=== PATIENT | female | born 1940 | race Two or more races ===

== ENCOUNTER 2017-02-28 23:29 | Inpatient (IN) | payer MEDICARE, MEDICAID ==
[~2017-02-28] VITALS: Ht 165.1 cm; Wt 83.7 kg
[2017-03-01 02:00] VITALS: BP 117/58
--- NOTE | 2017-03-01 02:00 | NUR ---
ADMISSION NOTES RECEIVED REPORT FROM [facility]. PT WAS BROUGHT TO THE UNIT ACCOMPANIED BY EMT. PATIENT ADMITTED FOR PNA, NEW ONSET SVT. PATIENT IS ALERT AND ORIENTED X3 SOUTH KOREAN SPEAKING BUT UNDERSTAND BASIC WELSH. PT ON 2 LITERS VIA NC WITH LEFT AC #18 ON [place]PL[place]. RESPIRATION EVEN AND UNLABORED. DENIES SOB. DENIES CHEST PAIN. ALL PAPER WORKS FROM [facility] ATTACHED TO CHART. ORIENTED PATIENT TO UNIT AND HOUR ROUNDING. PLACED ON TELE MONITOR WITH CURRENT READING OF SINUS TACH 115. SAFETY PRECAUTIONS FOR FALL INITIATED. CALL LIGHT WITHIN REACH. WILL CONTINUE TO MONITOR.
--- NOTE | 2017-03-01 02:10 | NUR ---
PERFORMED SKIN ASSESSMENT AND NO SKIN ISSUES NOTED. INVENTORY OF BELONGINGS COMPLETED BY [place] [facility]. ALL PATIENT MEDICATION COLLECTED AND WILL BE SEND TO PHARMACY.
[2017-03-01] MEDS ORDERED: REPA1TAB6 PO (02:50)
[2017-03-01] MEDS ORDERED: LORA1TAB PO (02:50)
[2017-03-01] MEDS ORDERED: SIMV20TA6 PO (02:50)
[2017-03-01] MEDS ORDERED: DILT300C25 PO (02:50)
[2017-03-01] MEDS ORDERED: MONT10TA22 PO (02:50)
[2017-03-01] MEDS ORDERED: LOSA1TAB39 PO (02:50)
[2017-03-01] MEDS ORDERED: CLOP75TA2 PO (02:50)
[2017-03-01] MEDS ORDERED: CLON0.1T PO (02:50)
--- NOTE | 2017-03-01 03:11 | NUR ---
CALLED DR. WALLACE RELAY ABOUT PT'S ASSESSMENT. MADE AWARE OF THE MEDICATION LIST AND PATIENT'S REQUEST FOR ATIVAN. PER MD TO GIVE 0.5MG OF ATIVAN IV X1 NOW. ALSO PER MD ON DIABETIC DIET.
--- NOTE | 2017-03-01 03:12 | NUR ---
ALSO PER HE WILL DO THE MED RECON OF THE PT
[2017-03-01] MEDS ORDERED: LORAZEPAM INJ 2 MG/ML VIAL ONE (03:13)
[2017-03-01] MEDS ORDERED: LORAZEPAM INJ 2 MG/ML VIAL IV ONE (03:30)
--- NOTE | 2017-03-01 03:30 | NUR ---
informed pt about ativan iv however pt refused stated "no". educate pt regarding the risk and benefits however pt still refused.
[2017-03-01] MEDS ORDERED: ALBU18HF2 INH (03:35)
[2017-03-01] MEDS ORDERED: XOPENEX 45 MCG INH (03:35)
[2017-03-01 04:00] VITALS: BP 121/71
[2017-03-01] MEDS ORDERED: MORPHINE SULFATE INJ 2 MG/ML DISP.SYRIN IV PRN (06:30)
[2017-03-01] MEDS ORDERED: ACETAMINOPHEN 325 MG TABLET PO PRN (06:30)
[2017-03-01] MEDS ORDERED: ONDANSETRON HCL/PF 4 MG/2 ML VIAL IVP PRN (06:30)
[2017-03-01] MEDS ORDERED: LEVALBUTEROL HCL NEB 1.25 MG/0.5 ML VIAL.NEB NEB PRN (06:30)
--- NOTE | 2017-03-01 06:34 | NUR ---
RECEIVED ORDERS FROM DR WALLACE, ROCEPHIN IV SCHEDULED FOR 0630, PT RECEIVED A DOSE OF ROCEPHIN IN [facility] AT 2100, RELAYED TO MEERA CARLSON, STATED TO PUT NON ADMIN AND CHANGED THE TIME TO 2100 INSTEAD, ALSO THERE'S AN ORDER FOR ZITHROMAX 500MG IV SCHEDULED FOR 0630AM, CALLED MEERA BLACKMAN TO OVERRIDE MEDICATION HOWEVER SHE STATED ITS ALMOST TIME FOR THE PHARMACY TO COME, SO PHARMACY WILL TAKE CARE OF IT AND ADMINISTER THE MEDICINE LATER ONCE AVAILABLE. MEERA CARLSON AWARE
--- NOTE | 2017-03-01 07:00 | NUR ---
per school lunch monitornia arreguin pt on borderline 1st degree hr 96, pt denies any chest pain or discomfort at this time, no sob noted, will continue to monitor the pt
--- NOTE | 2017-03-01 07:04 | NUR ---
RN NOTES: TALKED TO PHARMACIST ALYSON, INFORMED ABOUT PT RECEIVED ROCEPHIN 2MG IV IN ER [facility], SHE STATED TO FAXED THE RECORD FROM [facility], ALSO RELAYED ABOUT ZITHROMAX IV DOSE TO BE GIVEN AT 0630, PER RN COLIN BLACKMAN TO WAIT FOR PHARMACY TO DELIVER THE MED, PER ALYSON SHE STATED ITS OKAY
--- NOTE | 2017-03-01 07:08 | NUR ---
television cable installer closing notes: pt in bed, awake, remains on 2l via nc, denies any sob, denies any chest pain, per biomedical electronics technician pt is borderline 1st degree hr 96. left ac iv access remains patent and flushing well, on hl. vs remains stable, needs attended. safety precautions for fall remains engaged, call light in reach, will endorse to day rn for lara.
[2017-03-01 07:19] LABS: BASOPHILS % (AUTO) 0.1 % (0.0-2.0); EOSINOPHILS % (AUTO) 0.1 % (0.0-6.0); HEMATOCRIT 32 % (33-45); HEMOGLOBIN 10.8 g/dL (11.5-14.8); LYMPHOCYTES # (AUTO) 1.8 /CMM (0.8-4.8); LYMPHOCYTES % (AUTO) 9.4 % (20.0-44.0); MEAN CORPUSCULAR HEMOGLOBIN 28 PG (26.0-33.0); MEAN CORPUSCULAR HGB CONC 33 g/dl (31.0-36.0); MEAN CORPUSCULAR VOLUME 85 fL (82-100); MONOCYTES # (AUTO) 1.2 /CMM (0.1-1.30); MONOCYTES % (AUTO) 6.4 % (2.0-12.0); NEUTROPHILS # (AUTO) 15.8 /CMM (1.8-8.9); PLATELET COUNT (AUTO) 319 /CMM (150-450); RDW COEFFICIENT OF VARIATION 15.7 (11.5-15.0); RED BLOOD CELL COUNT(AUTO) 3.81 MIL/uL (4.0-5.2); WHITE BLOOD COUNT (AUTO) 18.8 K/uL (4.3-11.0)
--- NOTE | 2017-03-01 07:30 | NUR ---
TELE/RN OPENING NOTE RECEIVED PT. SITTING UP IN BED WITH HEAD OF BED ELEVATED. NO SOB, PT. IS WEARING NASAL CANNULA AT 2L/MIN. NO S/S OF ACUTE DISTRESS. PT. IS SINUS 96BPM IN FIRST DEGREE AV BLOCK BORDERLINE. CALL LIGHT WITHIN REACH, ADVISED PT. TO CALL FOR ASSISTANCE. ALL NEEDS MET. WILL CONTINUE TO MONITOR AND ASSESS.
[2017-03-01 07:31] LABS: CALCIUM, SERUM 8.6 mg/dL (8.5-10.1); CARBON DIOXIDE 31 mmol/L (21-32); CHLORIDE 102 mmol/L (98-107); CREATININE 1.7 mg/dL (0.6-1.3); GLUCOSE 179 mg/dL (74-106); POTASSIUM 3.5 mmol/L (3.5-5.1); SODIUM SERUM 140 mmol/L (136-145); UREA NITROGEN, BLOOD 36 mg/dL (7-18)
[2017-03-01 07:37] LABS: TROPONIN I < 0.017 ng/mL (0.00-0.056)
[2017-03-01 07:43] LABS: ALANINE AMINOTRANSFERASE 24 U/L (12-78); ALBUMIN 2.6 g/dL (3.4-5.0); ALKALINE PHOSPHATASE 73 U/L (46-116); ASPARTATE AMINOTRANSFERASE 17 U/L (15-37); B-TYPE NATRIURETIC PEPTIDE 1819 PG/ML (0-125); BILIRUBIN,TOTAL 0.3 mg/dL (0.2-1.0); PHOSPHORUS 2.6 mg/dL (2.5-4.9); TOTAL PROTEIN, SERUM 6.9 g/dL (6.4-8.2)
[2017-03-01 07:44] LABS: CHOLESTEROL 237 mg/dL (<200); HDL CHOLESTEROL 50 mg/dL (40-60); LDL 155 mg/dL (0-99); THYROID STIMULATING HORMONE 1.545 uIU/mL (0.358-3.74); TRIGLYCERIDES 125 mg/dL (30-150)
--- NOTE | 2017-03-01 07:55 | NUR ---
TELE/RN NOTE PT.'S HEART RHYTHM CHANGED TO ATRIAL FLUTTER AND ATRIAL FIBRILLATION AT [address] ASHLEY, AND DR. MOYA AND MADE AWARE OF PT.'S CONDITION AND CHANGE IN HEART RHYTHM. DISCUSSED WITH DR. MOYA TO HOLD MEDICATIONS UNTIL HE EXAMINES HER.
[2017-03-01 08:00] VITALS: BP 138/64
--- NOTE | 2017-03-01 08:45 | NUR ---
TELE/RN NOTES PT. WAS SEEN AND EXAMINED BY DR. MOYA. PER NEW ORDERS, PT. CAN RESUME PO MEDICATIONS, AND TO HOLD PLAVIX. DISCUSSED WITH MD PT. IS SCHEDULED TO TAKE ATIVAN 0900, PER MD MEDICATIONS WAS QUESTIONABLE AND WAS HELD.
--- NOTE | 2017-03-01 08:47 | NUR ---
TELE/RN NOTES NEW ORDER OK TO TRANSFER PT. TO TELE/PER PER DR. MOYA.
[2017-03-01] MEDS ORDERED: CLOPIDOGREL BISULFATE 75 MG TABLET PO SCH (09:00)
[2017-03-01] MEDS: LORAZEPAM 1 MG TABLET PO SCH (09:00)
[2017-03-01] MEDS ORDERED: REPAGLINIDE 1 MG PO SCH (09:30)
[2017-03-01] MEDS: MONTELUKAST SODIUM (10MG) 10 MG TABLET PO SCH (09:39)
[2017-03-01] MEDS: DOCUSATE SODIUM 100 MG CAPSULE PO SCH ×2 (09:39→17:43)
[2017-03-01] MEDS: PANTOPRAZOLE 40 MG TABLET.DR PO SCH (09:39)
[2017-03-01] MEDS: DILTIAZEM HCL CD 300 MG PO SCH (09:42)
[2017-03-01] MEDS: POTASSIUM CHLORIDE 20 MEQ TAB.PRT.SR PO SCH ×3 (09:47→11:40)
[2017-03-01] MEDS: REPAGLINIDE 0.5 MG TABLET PO SCH ×2 (10:27→17:44)
--- NOTE | 2017-03-01 10:30 | NUR ---
TELE/RN NOTES PT.'S BED IS AVAILABLE IN ROOM 113-1. CALLED PER TO PROVIDE REPORT FOR TRANSFER. PROVIDED REPORT TO NASIM THAT PT. HEART RHYTHM HAS BEEN A FIB AND FLUTTER IN THE 160'S. PT. AT THIS TIME IS IN SINUS RHYTHM IN 100'S. PT. IS A&OX4, DENIES CHEST PAIN, AND NOT IN ACUTE DISTRESS. WILL BE TRANSFERRING PT. WITH NASAL CANNULA AT 2L/MIN, AND EXTERNAL MONITOR ON.
--- NOTE | 2017-03-01 11:00 | NUR ---
TELE/MECHANICAL PIPING DESIGNER TO PER PT. WAS TRANSFERRED TO PER IN BED, AWAKE, A&OX4, NO SOB, WEARING NASAL CANNULA AT 2L/MIN. PT.'S MEDICATIONS, BELONGINGS, AND CHART WAS BROUGHT WITH HER. GIFT WRAPPER AND ANOTHER RN TRANSFERRED PT. TO PER TOGETHER.
[2017-03-01] MEDS ORDERED: IV SET PRIMARY PUMP SET 1 EA INFUS.SET MC ONE (11:10)
[2017-03-01] MEDS ORDERED: SECONDARY IV SET 1 EA INFUS.SET MC ONE (11:11)
[2017-03-01] MEDS ORDERED: IV NS 0.9% 250 ML IV ONE (11:12)
--- NOTE | 2017-03-01 11:15 | NUR ---
PER RN NOTE: RECEIVED PATIENT TRANSFERED FROM 3W S/P EPISODE OF AFIB/AFLUTTER HR 160'S PER 3W RN CARDIZEM WAS ADMINISTERED AND PATIENT CONVERTED. DR. MOYA MADE AWARE AND ORDERS FOR TRANSFER PLACED, PATIENT IS ALERT AND ORIENTED X3 SETS[place]NA SPEAKING ON 2L 02 VIA NC. NO DISTRESS NOTED. PATIENT DENIES CHEST PAIN AT THIS TIME. HR [address]LE MONITOR. DR[address] MARTY WANG MADE AWARE. VS STABLE. LAC IV LEAKING, IV PLACED IN LHAND 22G AND RHAND 20 G BOTH PATENT AND INTACT. PATIENT ABLE TO AMBULATE TO RESTROOM HOWEVER ON BEDREST, EDUCATION PROVIDED. CALL LIGHT PLACED WITHIN REACH. SAFETY MEASURES OBSERVED. WILL CONTINUE TO MONITOR.
[2017-03-01] MEDS: AZITHROMYCIN 500 MG in IV D5W 250 ML IV SCH (11:22)
[2017-03-01] MEDS: Magnesium 1GM/D5W 100ML PREMIX 100 ML IV SCH ×2 (11:29→13:25)
[2017-03-01 12:00] VITALS: BP 131/53
[2017-03-01] MEDS: FERROUS SULFATE (325 MG) 325 MG/TAB TABLET PO SCH ×2 (13:25→17:43)
[2017-03-01] MEDS: DRONEDARONE HYDROCHLORIDE 400 MG TABLET PO SCH ×2 (13:44→17:43)
--- NOTE | 2017-03-01 13:45 | NUR ---
PER RN NOTE: MULTAQ ADMINISTERED ORDERED AN ANTIARRHYTHMIC, PATIENT IN SR HR IN 90'S, ONGOING MONITORING
--- NOTE | 2017-03-01 15:51 | NUR ---
PER RN NOTE: PATIENT NOTED TO BE VERY DIAPHORETIC, BED BATH GIVEN, BEDDING AND GOWN CHANGED. ONGOING MONITORING.
[2017-03-01 16:00] VITALS: BP 115/46
--- NOTE | 2017-03-01 17:02 | NUR ---
PER RN NOTE: PATIENT'S HgA1C NOTED TO BE 7.8 ACCUCHECK DONE AND NOTED TO BE 169. CALLS MADE TO DR. MARTY WANG REGARDING ORDER FOR ACCUCHECK AND SLIDING SCALE INSULIN AWAITING CALL BACK. ONGOING MONITORING.
--- NOTE | 2017-03-01 17:30 | NUR ---
PER RN NOTE: PATIENT TRANSPORTED TO CT FOR CHEST CT WITHOUT CONTRAST. PATIENT NOTED WITH RESPIRATORY DISTRESS DURING CT UPON EXERTION. UPON RETURN CALL MADE TO RT FOR PRN BREATHING TREATMENT. DR. MARTY WANG NOTIFIED AND RECEIVED ORDERS. ONGOING MONITORING.
[2017-03-01] MEDS: FLUTICASONE/SALMETEROL DISKUS IH SCH (17:42)
[2017-03-01] MEDS: RIVAROXABAN 15 MG TABLET PO SCH (17:43)
[2017-03-01] MEDS: BLOOD SUGAR DIAGNOSTIC 1 EACH STRIP VI SCH ×2 (17:45→21:45)
[2017-03-01] MEDS ORDERED: DEXTROSE 50%-WATER 50 ML DISP.SYRIN IV PRN (18:00)
[2017-03-01 20:00] VITALS: BP_SYST 119; BP_SYST 124; BP_DIAS 52; BP_DIAS 53
--- NOTE | 2017-03-01 20:10 | NUR ---
PER/TANDEM OPERATOR PT UP TO BATHROOM WITH ASSIST, VOIDEDX1. THEN ASSIST BACK TO BED. CALL LIGHT WITHIN REACH. SOME SOB NOTED, RT ON WAY FOR BREATHING TREATMENT.
[2017-03-01] MEDS: IPRATROPIUM NEB FS 0.5 MG/2.5 ML AMPUL.NEB NEB PRN (20:56)
[2017-03-01] MEDS: ALBUTEROL HALF STRENGTH 1.25 MG/3 ML VIAL.NEB NEB PRN (20:56)
[2017-03-01] MEDS ORDERED: CEFTRIAXONE 1 G in IV D5W 50 ML IV SCH (21:00)
--- NOTE | 2017-03-01 21:10 | NUR ---
PER/SIGN POSTER RESPIRATORY THERAPIST IN ROOM TO GIVE BREATHING TREATMENT.
[2017-03-01] MEDS: SIMVASTATIN 10 MG TABLET PO SCH (21:45)
[2017-03-01] MEDS: *INSULIN REGULAR(HUMULIN R)HUM 100 UNIT/ML VIAL SQ PRN (21:46)
--- NOTE | 2017-03-01 22:10 | NUR ---
PER/RESEARCH ASSOC PT'S BLOOD SUGAR IS 221, THERE WAS 4 UNITS REGULAR INSULIN GIVEN FOR THIS. PT HAS A MODERATE SCALE. WILL CONTINUE TO CHECK SUGAR AGAIN ORDERED BY .
[2017-03-02] VITALS (7 sets, daily range): BP systolic 105–119; BP diastolic 47–66
--- NOTE | 2017-03-02 00:20 | NUR ---
PER/PLANNING CONSULTANT PT APPEARS TO BE RESTING COMFORTABLE. NO ACUTE RESPIRATORY DISTRESS SEEN. CALL LIGHT WITHIN REACH.
--- NOTE | 2017-03-02 03:05 | NUR ---
PER/TEST ENGINE EVALUATOR PT HAD A LITTLE RESPIRATORY DISTRESS, CALLED RT TO GIVEN A BREATHING TREATMENT. WILL CONTINUES TO MONITOR THIS PT. CALL LIGHT WITHIN REACH.
[2017-03-02] MEDS: IPRATROPIUM NEB FS 0.5 MG/2.5 ML AMPUL.NEB NEB PRN ×4 (03:15→15:03)
[2017-03-02] MEDS: ALBUTEROL HALF STRENGTH 1.25 MG/3 ML VIAL.NEB NEB PRN ×4 (03:15→15:03)
--- NOTE | 2017-03-02 05:10 | NUR ---
PER/GRINDER MACHINE KNIFE SETTER PT WAS GIVEN A BATH WITH SHEETS CHANGED. PT UP TO CHAIR, WAS ABLE TO CHANGE SHEETS. PT TOLERATED THIS WELL. CALL LIGHT WITHIN REACH.
[2017-03-02] MEDS: PANTOPRAZOLE 40 MG TABLET.DR PO SCH (06:53)
[2017-03-02] MEDS: BLOOD SUGAR DIAGNOSTIC 1 EACH STRIP VI SCH ×4 (06:53→21:05)
[2017-03-02 07:26] LABS: ALANINE AMINOTRANSFERASE 25 U/L (12-78); ALBUMIN 2.7 g/dL (3.4-5.0); ALKALINE PHOSPHATASE 73 U/L (46-116); ASPARTATE AMINOTRANSFERASE 13 U/L (15-37); BILIRUBIN,TOTAL 0.3 mg/dL (0.2-1.0); CALCIUM, SERUM 8.8 mg/dL (8.5-10.1); CARBON DIOXIDE 31 mmol/L (21-32); CHLORIDE 102 mmol/L (98-107); CREATININE 1.8 mg/dL (0.6-1.3); GLUCOSE 199 mg/dL (74-106); MAGNESIUM 2.8 mg/dL (1.8-2.4); POTASSIUM 3.7 mmol/L (3.5-5.1); SODIUM SERUM 141 mmol/L (136-145); TOTAL PROTEIN, SERUM 7.1 g/dL (6.4-8.2); UREA NITROGEN, BLOOD 30 mg/dL (7-18)
[2017-03-02 07:40] LABS: TROPONIN I < 0.017 ng/mL (0.00-0.056)
--- NOTE | 2017-03-02 07:47 | NUR ---
PER/WARP TESTER PT'S BLOOD SUGAR IS 191, PT REFUSED INSULIN, ONLY WANTS PO MEDICATION FOR THIS. DAY NURSE AWARE OF THIS.
[2017-03-02 07:51] LABS: BASOPHILS % (AUTO) 0.2 % (0.0-2.0); EOSINOPHILS # (AUTO) 0.1 /CMM (0.0-0.7); HEMATOCRIT 33 % (33-45); HEMOGLOBIN 10.7 g/dL (11.5-14.8); LYMPHOCYTES # (AUTO) 1.6 /CMM (0.8-4.8); LYMPHOCYTES % (AUTO) 12.1 % (20.0-44.0); MEAN CORPUSCULAR HEMOGLOBIN 28 PG (26.0-33.0); MEAN CORPUSCULAR HGB CONC 33 g/dl (31.0-36.0); MEAN CORPUSCULAR VOLUME 86 fL (82-100); MONOCYTES # (AUTO) 0.9 /CMM (0.1-1.30); MONOCYTES % (AUTO) 6.8 % (2.0-12.0); NEUTROPHILS # (AUTO) 10.3 /CMM (1.8-8.9); NEUTROPHILS % (AUTO) 79.9 % (43.0-81.0); PLATELET COUNT (AUTO) 333 /CMM (150-450); WHITE BLOOD COUNT (AUTO) 12.9 K/uL (4.3-11.0)
[2017-03-02] MEDS: REPAGLINIDE 0.5 MG TABLET PO SCH ×2 (08:34→16:55)
[2017-03-02] MEDS: DOCUSATE SODIUM 100 MG CAPSULE PO SCH ×2 (08:34→16:55)
[2017-03-02] MEDS: MONTELUKAST SODIUM (10MG) 10 MG TABLET PO SCH (08:34)
[2017-03-02] MEDS: AZITHROMYCIN 500 MG in IV D5W 250 ML IV SCH (08:34)
[2017-03-02] MEDS: FERROUS SULFATE (325 MG) 325 MG/TAB TABLET PO SCH (08:34)
[2017-03-02] MEDS: LORAZEPAM 1 MG TABLET PO SCH (08:34)
[2017-03-02] MEDS: DRONEDARONE HYDROCHLORIDE 400 MG TABLET PO SCH ×2 (08:35→16:55)
[2017-03-02] MEDS: DILTIAZEM HCL CD 300 MG PO SCH (08:35)
[2017-03-02] MEDS: FLUTICASONE/SALMETEROL DISKUS IH SCH ×2 (08:36→16:55)
[2017-03-02] MEDS: INSULIN REGULAR, HUMAN 100 UNIT/ML 3 ML VIAL SQ PRN ×2 (11:43→17:03)
[2017-03-02] MEDS ORDERED: SECONDARY IV SET 1 EA INFUS.SET MC ONE (13:52)
--- NOTE | 2017-03-02 14:09 | NUR ---
PT IN FOR EVAL. PT IS ABLE TO STAND UP AND WALK WITH MINIMAL ASSIST, TOLERATES IT FAIRLY WELL. AT BASELINE SHE HAS WHEEZING ON INSPIRATION WHICH WORSENS SLIGHTLY WITH ACTIVITY. REQUIRES BREATHING TREATMENT.
[2017-03-02] MEDS: SOD FERRIC GLUC 125 MG in IV NS 0.9% 100 ML IV SCH (14:20)
[2017-03-02] MEDS: RIVAROXABAN 15 MG TABLET PO SCH (16:55)
--- NOTE | 2017-03-02 19:30 | NUR ---
RN OPENING NOTES' RECEIVED PATIENT ON BED AWAKE ALOX4 VERBALLY RESPONSIVE. ON 2 LPM TOLERATED WELL. NOTED PATIENT WITH INSPIRATORY WHEEZE BUT UPON AUSCULTATION OF LUNG SOUNDS NOTED WITH RONCHI THROUGHOUT LUNGS, WITHOUT NOTED WHEEZING. DESPITE THIS PATIENT IS NOT IN APPARENT DISTRESS AND IS TALKING OVER THE PHONE. SR ON MONITOR HR AT 95 BPM. IV ACCESS ON BOTH HANDS, REMAINED PATENT AND INTACT, SL AT THIS TIME. SAFETY MEASURES ENSURED. HOB ELEVATED, CALL LIGHT WITHIN REACH. CONTINUOUSLY MONITORED PATIENT.
--- NOTE | 2017-03-02 20:15 | NUR ---
RN NOTES: PATIENT WITH COMPLAINT OF DISCOMFORT OVER INNER BUTTOCK AREA. NOTED WITH REDNESS AND SLIGHT DISCOLORATION ALTHOUGH SKIN IS INTACT. ZGAURD AND PROTECTED AREA FROM FRICTION BY APPLYING MEPILEX. PHOTODOCUMENTATION OF AREA FILED. ASSISTED IN WEIGHT SHIFTING IN BED. TO CONTINUE MONITOR FOR POSSIBLE SKIN BREAKDOWN
[2017-03-02] MEDS: SIMVASTATIN 10 MG TABLET PO SCH (21:05)
[2017-03-02] MEDS: *INSULIN REGULAR(HUMULIN R)HUM 100 UNIT/ML VIAL SQ PRN (21:08)
[2017-03-03] VITALS: BP 113/49
--- NOTE | 2017-03-03 03:45 | NUR ---
RN NOTES: PATIENT WITH EPISODE OF TACHYCARDIA UPTO 120'S. NOTED WITH TACHYPNEA WELL, O2 SATS AT 92% AT THIS TIME. PATIENT UP FROM BED AND IN THE BATHROOM RENDERED MINIMAL ASSIST. URINE SPECIMEN OBTAINED. AM CARE AND SPONGE BATH GIVEN. PATIENT VERBALIZED SHE IS MORE COMFORTABLE NOW. WENT BACK TO BED. REMAINED ON O2 THERAPY. MONITORED FOR FURTHER TACHYCARDIA AND/OR TACHYPNEA.
[2017-03-03 04:00] VITALS: BP 101/57
[2017-03-03] MEDS: BLOOD SUGAR DIAGNOSTIC 1 EACH STRIP VI SCH ×4 (06:35→21:52)
[2017-03-03] MEDS: PANTOPRAZOLE 40 MG TABLET.DR PO SCH (06:35)
[2017-03-03] MEDS: INSULIN REGULAR, HUMAN 100 UNIT/ML 3 ML VIAL SQ PRN (06:38)
[2017-03-03] MEDS ORDERED: IV NS 0.9% 250 ML IV ONE (06:39)
--- NOTE | 2017-03-03 06:46 | NUR ---
RN CLOSING NOTES: PATIENT REMAINED IN BED NOT IN DISTRESS. REMAINED TRACH TO [facility], SETTINGS ORDERED. SR ON MONITOR HR AT 96 BPM. IV ACCESS REMAINED INTACT, AM LABS DRAWN. FC REMAINED INTACT, UO DOCUMENTED. SAFETY MEASURES ENSURED. SKIN CARE RENDERED. ASPIRATION PRECAUTIONS OBSERVED. TO ENDORSE TO AM SHIFT RN. Addendum: 03/03/17 at 0648 by GATITO LINDSEY RN PLEASE DISREGARD; WRONG CHART
--- NOTE | 2017-03-03 06:48 | NUR ---
RN CLOSING NOTE: PATIENT REMAINED IN BED NOT IN APPARENT DISTRESS, REMAINS ON O2 THERAPY. ST ON MONITOR HR AT 100BPM. IV ACCESS REMAINED INTACT. ASSISTED NEEDED. CALL LIGHT IN REACH. CONTINUOUSLY MONITORED. TO ENDORSE TO AM SHIFT RN.
[2017-03-03 07:31] LABS: BASOPHILS % (AUTO) 0.2 % (0.0-2.0); EOSINOPHILS # (AUTO) 0.1 /CMM (0.0-0.7); HEMATOCRIT 33 % (33-45); HEMOGLOBIN 10.8 g/dL (11.5-14.8); LYMPHOCYTES # (AUTO) 1.3 /CMM (0.8-4.8); LYMPHOCYTES % (AUTO) 9.1 % (20.0-44.0); MEAN CORPUSCULAR HEMOGLOBIN 29 PG (26.0-33.0); MEAN CORPUSCULAR HGB CONC 33 g/dl (31.0-36.0); MEAN CORPUSCULAR VOLUME 86 fL (82-100); MONOCYTES # (AUTO) 0.9 /CMM (0.1-1.30); MONOCYTES % (AUTO) 6.5 % (2.0-12.0); NEUTROPHILS # (AUTO) 11.8 /CMM (1.8-8.9); NEUTROPHILS % (AUTO) 83.2 % (43.0-81.0); PLATELET COUNT (AUTO) 400 /CMM (150-450); RDW COEFFICIENT OF VARIATION 15.8 (11.5-15.0); WHITE BLOOD COUNT (AUTO) 14.2 K/uL (4.3-11.0)
[2017-03-03 07:32] LABS: CALCIUM, SERUM 9.2 mg/dL (8.5-10.1); CARBON DIOXIDE 31 mmol/L (21-32); CHLORIDE 104 mmol/L (98-107); CREATININE 2.2 mg/dL (0.6-1.3); GLUCOSE 187 mg/dL (74-106); MAGNESIUM 2.8 mg/dL (1.8-2.4); PHOSPHORUS 4.4 mg/dL (2.5-4.9); POTASSIUM 4.3 mmol/L (3.5-5.1); SODIUM SERUM 141 mmol/L (136-145); UREA NITROGEN, BLOOD 35 mg/dL (7-18)
[2017-03-03 08:00] VITALS: BP 118/46
[2017-03-03] MEDS: AZITHROMYCIN 500 MG in IV D5W 250 ML IV SCH (09:02)
[2017-03-03] MEDS: LORAZEPAM 1 MG TABLET PO SCH ×2 (09:02→22:40)
[2017-03-03] MEDS: DRONEDARONE HYDROCHLORIDE 400 MG TABLET PO SCH ×2 (09:02→17:16)
[2017-03-03] MEDS: DILTIAZEM HCL CD 300 MG PO SCH (09:02)
[2017-03-03] MEDS: MONTELUKAST SODIUM (10MG) 10 MG TABLET PO SCH (09:03)
[2017-03-03] MEDS: DOCUSATE SODIUM 100 MG CAPSULE PO SCH ×2 (09:03→17:16)
[2017-03-03] MEDS: FLUTICASONE/SALMETEROL DISKUS IH SCH ×2 (09:03→17:16)
[2017-03-03] MEDS: REPAGLINIDE 0.5 MG TABLET PO SCH ×2 (09:03→17:16)
[2017-03-03 09:26] LABS: APPEARANCE,URINE SL CLOUDY (CLEAR); BILIRUBIN,URINE NEGATIVE (NEGATIVE); BLOOD, URINE 3+ Ery/uL (NEGATIVE); COLOR,URINE YELLOW (YELLOW); KETONES,URINE NEGATIVE (NEGATIVE); LEUKOCYTE ESTERASE ,URINE 1+ (NEGATIVE); NITRITE, URINE NEGATIVE (NEGATIVE); PH,URINE 5.5 (5.0-8.0); PROTEIN,URINE 2+ mg/dl (NEGATIVE); UGLUCOSE NEGATIVE (NEGATIVE); UROBILINOGEN,URINE 0.2 EU/dL (0.2)
[2017-03-03 09:59] LABS: BACTERIA,URINE Few /HPF (None Seen); RBC,URINE 21-50 /HPF (0-2)
[2017-03-03 10:15] LABS: *SPE A/G RATIO 0.8 (0.7-1.7); *SPE ALBUMIN 2.6 g/dL (2.9-4.4); *SPE ALPHA-1-GLOBULIN 0.3 g/dL (0.0-0.4); *SPE ALPHA-2-GLOBULIN 0.9 g/dL (0.4-1.0); *SPE BETA GLOBULIN 1.2 g/dL (0.7-1.3); *SPE GLOBULIN, TOTAL 3.3 g/dL (2.2-3.9); *SPE M-SPIKE Not Observed g/dL (Not Observed); *SPE PROTEIN TOTAL 5.9 g/dL (6.0-8.5); *SPEGAMMA GLOBULIN 0.9 g/dL (0.4-1.8)
[2017-03-03] MEDS: IV NS 0.9% 1,000 ML IV PRN (12:25)
[2017-03-03] MEDS: *INSULIN REGULAR(HUMULIN R)HUM 100 UNIT/ML VIAL SQ PRN ×2 (12:32→21:57)
[2017-03-03] MEDS: SOD FERRIC GLUC 125 MG in IV NS 0.9% 100 ML IV SCH (14:45)
[2017-03-03 16:00] VITALS: BP 122/59
[2017-03-03] MEDS: RIVAROXABAN 15 MG TABLET PO SCH (17:18)
[2017-03-03] MEDS: ALBUTEROL HALF STRENGTH 1.25 MG/3 ML VIAL.NEB NEB PRN (17:54)
[2017-03-03] MEDS: IPRATROPIUM NEB FS 0.5 MG/2.5 ML AMPUL.NEB NEB PRN (17:54)
--- NOTE | 2017-03-03 19:30 | NUR ---
RN INITIAL NOTES RECEIVED PATIENT SITTING UP IN CHAIR, 2LPM OF O2 VIA NC IN PLACE. PATIENT IS OBSERVED TO BE ALERT AND ORIENTED. PATIENT OBSERVED TO BE WITH INSPIRATORY WHEEZING, NO DISTRESS NOTED, PATIENT DENIES DISCOMFORT, SATURATION AT 93%. IVF INFUSING WELL ON PATIENT'S R HAND, NO SIGNS OF INFILTRATION. L HAND G22, FLUSHED AND PATENT, INTACT. PATIENT'S NEEDS ANTICIPATED AND MET. SAFETY AND COMFORT ENSURED. CALL LIGHT IN REACH.
[2017-03-03 20:00] VITALS: BP 133/62
[2017-03-03] MEDS: SIMVASTATIN 10 MG TABLET PO SCH (21:54)
[2017-03-03] MEDS ORDERED: LORAZEPAM 1 MG TABLET ONE (22:34)
--- NOTE | 2017-03-03 22:45 | NUR ---
RN NOTES SPOKE WITH DR. WALLACE AND CLARIFIED ORDER FOR ATIVAN. PER PATIENT SHE DOES NOT WANT THE ATIVAN IN THE AM, SHE TAKES IT AT BEDTIME TO HELP HER TO SLEEP. ORDER OBTAINED FROM DR. WALLACE TO D/C AM ATIVAN DOSE AND TO RESCHEDULE IT AT BEDTIME. ALSO OBTAINED ORDER TO GIVE ATIVAN 1MG TONIGHT PER PATIENT'S REQUEST. NOTED AND CARRIED OUT. PATIENT AWARE.
[2017-03-04] MEDS: IV NS 0.9% 1,000 ML IV PRN ×2 (02:36→16:05)
[2017-03-04 04:00] VITALS: BP 121/58
[2017-03-04 06:26] LABS: BASOPHILS % (AUTO) 0.2 % (0.0-2.0); EOSINOPHILS # (AUTO) 0.2 /CMM (0.0-0.7); EOSINOPHILS % (AUTO) 1.3 % (0.0-6.0); HEMATOCRIT 30 % (33-45); HEMOGLOBIN 9.8 g/dL (11.5-14.8); LYMPHOCYTES # (AUTO) 1.7 /CMM (0.8-4.8); LYMPHOCYTES % (AUTO) 14.7 % (20.0-44.0); MEAN CORPUSCULAR HEMOGLOBIN 28 PG (26.0-33.0); MEAN CORPUSCULAR HGB CONC 33 g/dl (31.0-36.0); MEAN CORPUSCULAR VOLUME 87 fL (82-100); MONOCYTES # (AUTO) 0.9 /CMM (0.1-1.30); MONOCYTES % (AUTO) 7.9 % (2.0-12.0); NEUTROPHILS # (AUTO) 8.9 /CMM (1.8-8.9); NEUTROPHILS % (AUTO) 75.9 % (43.0-81.0); PLATELET COUNT (AUTO) 384 /CMM (150-450); RDW COEFFICIENT OF VARIATION 15.7 (11.5-15.0); RED BLOOD CELL COUNT(AUTO) 3.46 MIL/uL (4.0-5.2); WHITE BLOOD COUNT (AUTO) 11.7 K/uL (4.3-11.0)
--- NOTE | 2017-03-04 06:42 | NUR ---
RN CLOSING NOTES PATIENT SLEEPING COMFORTABLY. RESPIRATION IS EVEN AND UNLABORED WITH NO DISTRESS. ON 2LPM OF O2 VIA NC. PATIENT WITH NO ACUTE CHANGE IN CONDITION OBSERVED OVERNIGHT. IVF INFUSING WELL ON PATIENT'S R HAND ORDERED. ALL DUE MEDS GIVEN ORDERED. NEEDS ANTICIPATED AND MET. SAFETY AND COMFORT ENSURED. BED IN LOW AND LOCKED POSITION. CALL LIGHT IN REACH.
[2017-03-04 06:48] LABS: CALCIUM, SERUM 8.6 mg/dL (8.5-10.1); CARBON DIOXIDE 31 mmol/L (21-32); CHLORIDE 106 mmol/L (98-107); CREATININE 2.1 mg/dL (0.6-1.3); GLUCOSE 154 mg/dL (74-106); POTASSIUM 4.3 mmol/L (3.5-5.1); SODIUM SERUM 144 mmol/L (136-145); UREA NITROGEN, BLOOD 37 mg/dL (7-18)
[2017-03-04 08:00] VITALS: BP 131/71
--- NOTE | 2017-03-04 08:00 | NUR ---
MS1/RN AM SHIFT INITIAL NOTES RECEIVED PT AWAKE SITTING IN CHAIR. NO ACUTE CHANGE OF CONDITION NOTED. PT A/O X 4, BRITISH SPEAKING, UNDERSTANDS LITTLE TAMAZIGHT, DENIES ANY DISCOMFORT. PT NOTED WITH INSPIRATORY WHEEZING. WITH ON GOING IV INFUSION OF NS @ 75CC/HR, IV SITE PATENT WITH NO S/S OF INFECTION. PT IS COMFORTABLE AT THIS TIME. SCHEDULED AM MEDS TO BE GIVEN. CL WITHIN REACHED AND SAFETY MAINTAINED. ON GOING MONITORING.
[2017-03-04] MEDS: AZITHROMYCIN 500 MG in IV D5W 250 ML IV SCH (08:30)
[2017-03-04] MEDS: DRONEDARONE HYDROCHLORIDE 400 MG TABLET PO SCH ×2 (08:30→16:06)
[2017-03-04] MEDS: DOCUSATE SODIUM 100 MG CAPSULE PO SCH ×2 (08:30→16:06)
[2017-03-04] MEDS: PANTOPRAZOLE 40 MG TABLET.DR PO SCH (08:31)
[2017-03-04] MEDS: DILTIAZEM HCL CD 300 MG PO SCH (08:31)
[2017-03-04] MEDS: REPAGLINIDE 0.5 MG TABLET PO SCH ×2 (08:31→16:07)
[2017-03-04] MEDS: MONTELUKAST SODIUM (10MG) 10 MG TABLET PO SCH (08:31)
[2017-03-04] MEDS: *INSULIN REGULAR(HUMULIN R)HUM 100 UNIT/ML VIAL SQ PRN ×2 (08:33→22:07)
[2017-03-04] MEDS: BLOOD SUGAR DIAGNOSTIC 1 EACH STRIP VI SCH ×4 (10:02→22:12)
[2017-03-04] MEDS: FLUTICASONE/SALMETEROL DISKUS IH SCH ×2 (10:02→16:06)
[2017-03-04 11:14] LABS: *ANCANTIMYELOPEROXIDASE (MPO) <9.0 U/mL (0.0-9.0); *ANCANTIPROTEINASE 3 (PR-3) AB <3.5 U/mL (0.0-3.5)
[2017-03-04] MEDS: INSULIN REGULAR, HUMAN 100 UNIT/ML 3 ML VIAL SQ PRN (11:59)
[2017-03-04 14:17] LABS: *ANCA ATYPICAL p-ANCA <1:20 titer (Neg:<1:20); *ANCA CYTOPLASMIC (C-ANCA) <1:20 titer (Neg:<1:20); *ANCA PERINUCLEAR (P-ANCA) <1:20 titer (Neg:<1:20)
--- NOTE | 2017-03-04 14:30 | NUR ---
MS1/RN ROUNDS PT IS COMFORTABLE SITTING ON CHAIR. MONITORING CONTINUED.
--- NOTE | 2017-03-04 14:45 | NUR ---
MS1/RN INCREASED HR PT COMPLAINT OF PALPITATIONS. VS TAKEN. BP 127/65, HR 140s. CALLED DR. FERGUSON THROUGH THE PHONE EXCHANGE TO NOTIFY HIM. AWAITING FOR RETURN CALL.
--- NOTE | 2017-03-04 15:00 | NUR ---
MS1/RN ROUNDS - DR. MELENDEZ PT SEEN AND EXAMINED PT D/T PT'S COMPLAINT OF INCREASED HR. RECEIVED ORDER FOR STAT EKG. ORDER NOTED AND CARRIED.
[2017-03-04] MEDS: SOD FERRIC GLUC 125 MG in IV NS 0.9% 100 ML IV SCH (15:24)
--- NOTE | 2017-03-04 15:28 | NUR ---
MS1/RN STAT EKG RESULT OF STAT EKG SHOWS SINUS TACHY, HR 106. DR. AL JOYA.
[2017-03-04 16:00] VITALS: BP 132/54
[2017-03-04] MEDS: RIVAROXABAN 15 MG TABLET PO SCH (16:08)
[2017-03-04] MEDS: GUAIFENESIN LA 600 MG TABLET.SA PO SCH (16:54)
--- NOTE | 2017-03-04 19:45 | NUR ---
MS/RN NOTES RECEIVED PT IN STABLE CONDITION. SITTING ON CHAIR AWAKE, ALERT AND ORIENTED X4. O2 2L NC, SAT 94%. NO SOB NOTED. R HAND IV WITH NS @ 75 ML/HR. L HAND IV #22 HL. RAMA LEGS ELEVATED. PT MADE AWARE OF PLAN OF CARE AND VERBALIZED UNDERSTANDING. DENIES PAIN AND NO CONCERNS OFFERED. SIDE TABLE, CALL MCCONNELL AND PERSONAL BELONGINGS WITHIN REACH. WILL CONTINUE TO MONITOR.
[2017-03-04 20:00] VITALS: BP 101/59
[2017-03-04] MEDS: LORAZEPAM 1 MG TABLET PO SCH (22:08)
[2017-03-04] MEDS: SIMVASTATIN 10 MG TABLET PO SCH (22:08)
[2017-03-04] MEDS: IPRATROPIUM NEB FS 0.5 MG/2.5 ML AMPUL.NEB NEB PRN (23:42)
[2017-03-04] MEDS: ALBUTEROL HALF STRENGTH 1.25 MG/3 ML VIAL.NEB NEB PRN (23:43)
[2017-03-05 04:00] VITALS: BP 123/54
[2017-03-05] MEDS: IV NS 0.9% 1,000 ML IV PRN (06:06)
--- NOTE | 2017-03-05 06:46 | NUR ---
MS/RN NOTES NO SIGNIFICANT CHANGES. STABLE. O2 2L NC, SAT 91-94%. INCREASE SOB WITH EXERTION, WITH O2 NC, PARTICULARLY WHEN GOING BACK TO BED FROM THE BATHROOM. ABLE TO DEEP BREATHE EFFECTIVELY AND IN NO DISTRESS. IVF IN PROGRESS. NO COMPLAINTS OR CONCERNS MADE. ALL NEEDS MET. SIDE TABLE AND CALL MCCONNELL WITHIN REACH. WILL ENDORSE TO AM SHIFT FOR CONTINUITY OF CARE.
--- NOTE | 2017-03-05 07:15 | NUR ---
RN INITIAL NOTE PT RECEIVED SITTING IN CHAIR. AWAKE, ALERT AND ORIENTED. NO S/S OF PAIN OR DISCOMFORT. PRIMARILY PORTUGUESE SPEAKING. ABLE TO MAKE NEEDS KNOWN. RESPIRATIONS ARE EVEN, SATING IN LOW 90'S ON 2L NASAL CANULA. PATIENT DOES HAVE WHEEZING. SKIN IS WARM AND DRY TO TOUCH. IV SITES FLUSHED AND PATENT. DRESSING C/D/I. SAFETY PRECAUTIONS IN PLACE, BED IN LOCKED, LOW POSITION WITH TWO SIDE RAILS UP. CALL LIGHT AND BELONGINGS WITHIN EASY REACH. WILL CONTINUE TO MONITOR
[2017-03-05] MEDS: BLOOD SUGAR DIAGNOSTIC 1 EACH STRIP VI SCH ×2 (07:16→12:40)
[2017-03-05 08:00] VITALS: BP 122/52
[2017-03-05] MEDS: GUAIFENESIN LA 600 MG TABLET.SA PO SCH (08:16)
[2017-03-05] MEDS: DOCUSATE SODIUM 100 MG CAPSULE PO SCH (08:17)
[2017-03-05] MEDS: FLUTICASONE/SALMETEROL DISKUS IH SCH (08:17)
[2017-03-05] MEDS: DRONEDARONE HYDROCHLORIDE 400 MG TABLET PO SCH (08:17)
[2017-03-05] MEDS: REPAGLINIDE 0.5 MG TABLET PO SCH (08:17)
[2017-03-05] MEDS: DILTIAZEM HCL CD 300 MG PO SCH (08:17)
[2017-03-05] MEDS: MONTELUKAST SODIUM (10MG) 10 MG TABLET PO SCH (08:18)
[2017-03-05] MEDS: PANTOPRAZOLE 40 MG TABLET.DR PO SCH (08:18)
[2017-03-05] MEDS: AZITHROMYCIN 500 MG in IV D5W 250 ML IV SCH (08:21)
[2017-03-05 12:00] VITALS: BP 103/65
[2017-03-05] MEDS ORDERED: predniSONE 20 MG TABLET PO SCH (14:00)
[2017-03-05 16:00] VITALS: BP 135/61
[2017-03-05] MEDS: IPRATROPIUM NEB FS 0.5 MG/2.5 ML AMPUL.NEB NEB PRN (16:43)
[2017-03-05] MEDS: ALBUTEROL HALF STRENGTH 1.25 MG/3 ML VIAL.NEB NEB PRN (16:43)
--- NOTE | 2017-03-05 18:32 | NUR ---
RN CLOSING NOT PATIENT LEFT AMA.
--- NOTE | 2017-03-05 18:45 | NUR ---
RN CLOSING NOTE PATIENT REQUEST TO LEAVE. SON CAME WITH CLOTHES. NIECE SPOKE WITH MD ON PHONE. LEAVING AMA. IV REMOVED.
== END 2017-03-05 18:20 | disposition left against medical advice (07) | DRG 190 ==
LOC: TELE 03-01 01:49 → TELE1 03-01 10:40 → TELE-TD 03-01 11:36 → TELE1 03-02 10:04 → MEDSG1 03-03 11:17
PROVIDERS: ADMIT Internal Medicine; ATTEND Internal Medicine
DX: J44.0 Chronic obstructive pulmonary disease with (acute) lower respiratory infection (principal); J18.9 Pneumonia, unspecified organism; I47.1 Supraventricular tachycardia; I48.92 Unspecified atrial flutter; N39.0 Urinary tract infection, site not specified; I12.9 Hypertensive chronic kidney disease with stage 1 through stage 4 chronic kidney disease, or unspecified chronic kidney disease; N18.9 Chronic kidney disease, unspecified; E11.65 Type 2 diabetes mellitus with hyperglycemia; E11.22 Type 2 diabetes mellitus with diabetic chronic kidney disease; E78.5 Hyperlipidemia, unspecified; D50.9 Iron deficiency anemia, unspecified; K21.9 Gastro-esophageal reflux disease without esophagitis; J44.1 Chronic obstructive pulmonary disease with (acute) exacerbation; J40 Bronchitis, not specified as acute or chronic; E87.6 Hypokalemia; D72.829 Elevated white blood cell count, unspecified; Z99.81 Dependence on supplemental oxygen; B95.2 Enterococcus as the cause of diseases classified elsewhere
CPT/HCPCS: 36415; 71010-TC; 71250-TC; 76770-TC; 80048-TC; 80053-TC; 80061-TC; 81000-TC; 82728-TC; 82962-TC; 83520; 83540-TC; 83735-TC; 83880; 84100-TC; 84155; 84165; 84439-TC; 84443-TC; 84484-TC; 85025-TC; 85652-TC; 86140-TC; 86256; 87081-TC; 87086-TC; 87186-TC; 93307-TC; 94799-TC; J0456; J0696; J1815; J2060; J2916; J3475; J7030; J7050; J7060